=== PATIENT | female | born 1945 | race Caucasian/White ===

== ENCOUNTER 2019-04-13 08:54 | Emergency (ER) | payer OTHER ==
[2019-04-13 09:32] LABS: ADD MAN DIFF? NO
[2019-04-13 09:42] LABS: BASOPHILS % 0.2 % (0.0-2.0); EOSINOPHILS # 0.1 10^3/ul (0.0-0.5); EOSINOPHILS % 0.5 % (0.0-7.0); HEMATOCRIT 36.6 % (37.0-47.0); HEMOGLOBIN 12.2 g/dl (12.0-16.0); LYMPHOCYTES # 2.2 10^3/ul (0.8-2.9); LYMPHOCYTES % 20.5 % (15.0-51.0); MEAN CORPUSCULAR HEMOGLOBIN 29.3 pg (29.0-33.0); MEAN CORPUSCULAR HGB CONC 33.3 g/dl (32.0-37.0); MEAN CORPUSCULAR VOLUME 87.8 fl (82.0-101.0); MEAN PLATELET VOLUME 10.6 fl (7.4-10.4); MONOCYTE # 0.4 10^3/ul (0.3-0.9); MONOCYTES % 3.3 % (0.0-11.0); NEUTROPHILS % 74.8 % (39.0-77.0); PLATELET COUNT 262 10^3/UL (140-415); RED BLOOD COUNT 4.17 10^6/ul (4.20-5.40); RED CELL DISTRIBUTION WIDTH 13.7 % (11.5-14.5)
[2019-04-13 09:42] LABS: WHITE BLOOD COUNT 10.7 10^3/ul (4.8-10.8)
[2019-04-13] MEDS: MECLIZINE 12.5 MG TAB PO (09:43)
[2019-04-13] MEDS: ONDANSETRON 4 MG INJ IV (09:43)
[2019-04-13] MEDS: SOD CHLORIDE 0.9% 1,000 ML IV (09:43)
[2019-04-13] MEDS: LABETALOL HCL 20MG INJ IV ×2 (09:44→09:52)
[2019-04-13 09:56] LABS: INR 0.92; PROTIME 12.5 Sec (11.9-14.9)
[2019-04-13 09:57] LABS: ADD UMIC NO; PARTIAL THROMBOPLASTIN TIME 31.1 Sec (23.0-35.0); UR ASCORBIC ACID NEGATIVE (NEGATIVE); UR BILIRUBIN (Dip) NEGATIVE (NEGATIVE); UR BLOOD (Dip) NEGATIVE (NEGATIVE); UR CLARITY CLEAR (CLEAR); UR COLOR STRAW (YELLOW); UR GLUCOSE (Dip) NEGATIVE (NEGATIVE); UR KETONES (Dip) NEGATIVE (NEGATIVE); UR LEUKOCYTE ESTERASE (Dip) NEGATIVE Leu/ul (NEGATIVE); UR NITRITE (Dip) NEGATIVE (NEGATIVE); UR TOTAL PROTEIN (Dip) NEGATIVE (NEGATIVE); UR UROBILINOGEN (Dip) NEGATIVE (NEGATIVE)
[2019-04-13 10:03] LABS: ANION GAP 10 (5-13); BLOOD UREA NITROGEN 10 mg/dl (7-20); CALCIUM 9.6 mg/dl (8.4-10.2); CARBON DIOXIDE 22 mmol/L (21-31); CHLORIDE 107 mmol/L (97-110); CHOL/HDL RATIO 2.9 RATIO; CHOLESTEROL 158 mg/dl (100-200); CREATININE 0.67 mg/dl (0.44-1.00); GLUCOSE 118 mg/dl (70-220); HDL CHOLESTEROL 53 mg/dl (33-92); LDL CHOLESTEROL,CALCULATED 84 mg/dl; POTASSIUM 3.8 mmol/L (3.5-5.1); SODIUM 139 mmol/L (135-144); TRIGLYCERIDES 106 mg/dl (0-149)
[2019-04-13 10:10] LABS: HEMOGLOBIN A1C 5.8 % (0-5.9)
[2019-04-13 10:14] LABS: TROPONIN-I < 0.012 ng/ml (0.000-0.120)
[2019-04-13 10:27] LABS: AMPHETAMINE/METHAMPHETAMINE Negative (NEGATIVE); BARBITURATES Negative (NEGATIVE); BENZODIAZEPINES Negative (NEGATIVE); CANNABINOIDS Negative (NEGATIVE); COCAINE Negative (NEGATIVE); OPIATES Negative (NEGATIVE)
[2019-04-13] MEDS: LORAZEPAM 2 MG INJ IV (10:49)
== END 2019-04-13 10:40 | disposition home or self-care (01) ==
LOC: E/R 08:54
DX: I10 Essential (primary) hypertension (principal); E03.9 Hypothyroidism, unspecified
CPT/HCPCS: 36415; 70450; 71045; 80048; 80061; 80307; 81003; 83036; 84484; 85025; 85610; 85730; 93005; 96361; 96374; 99285-25